=== PATIENT | male | born 1995 | race Two or more races ===

== ENCOUNTER 2017-05-02 01:32 | Emergency (ER) | payer SELFPAY ==
[~2017-05-02] VITALS: Ht 180.3 cm; Wt 82.0 kg
[2017-05-02] MEDS ORDERED: LORazepam 2 MG/ML, 1ML ONE ×2 (01:48→02:52)
[2017-05-02] MEDS ORDERED: LORazepam 2 MG/ML, 1ML IVPush ONE ×2 (02:00→03:00)
[2017-05-02] MEDS ORDERED: SODIUM CHLORIDE FLUSH 10ML SYR IVF ONE (02:00)
[2017-05-02] MEDS ORDERED: PLEASE ENTER ALLERGIES MC SCH (02:00)
[2017-05-02] MEDS ORDERED: SODIUM CHLORIDE 0.9% 1,000ML IVBOLUS ONE ×2 (02:00→03:00)
[2017-05-02] MEDS ORDERED: OMNIPAQUE 350 MG/ML, 100ML BOTTLE ONE (04:02)
[2017-05-02 05:13] VITALS: BP 125/76
== END 2017-05-02 05:12 | disposition home or self-care (01) ==
LOC: ED 02:13
DX: S06.0X0A Concussion without loss of consciousness, initial encounter (principal); S16.1XXA Strain of muscle, fascia and tendon at neck level, initial encounter; S00.11XA Contusion of right eyelid and periocular area, initial encounter; F15.10 Other stimulant abuse, uncomplicated; X58.XXXA Exposure to other specified factors, initial encounter; Y93.89 Activity, other specified; Y99.8 Other external cause status; Y92.89 Other specified places as the place of occurrence of the external cause
CPT/HCPCS: 70450; 70486; 70498; 71045; 72125; 74177; 93005; 96361; 96374; 96376; 99284; J2060; J7030; Q9967

== ENCOUNTER 2017-12-29 04:13 | Observation (INO) | payer OTHER ==
[~2017-12-29] VITALS: Ht 182.9 cm; Wt 70.0 kg
[2017-12-29] MEDS ORDERED: QUET25TA5 PO (04:42)
[2017-12-29] MEDS ORDERED: BUPR-173 PO (04:42)
[2017-12-29 05:22] LABS: BASOPHILS # (AUTO) 0.08 x10^3/uL (0-0.3); BASOPHILS % (AUTO) 1 % (0-1); EOSINOPHILS # (AUTO) 0.13 x10^3/uL (0-0.8); EOSINOPHILS % (AUTO) 2 % (1-7); LYMPHOCYTES # (AUTO) 2.32 x10^3/uL (1-6.1); LYMPHOCYTES % (AUTO) 30 % (22-44); MD NO; MEAN CORPUSCULAR HEMOGLOBIN 29.8 pg (27.5-34.5); MEAN CORPUSCULAR HGB CONC 34.6 g/dL (33.2-36.2); MEAN CORPUSCULAR VOLUME 86.3 fL (81-97); MEAN PLATELET VOLUME 8.1 fL (7.4-10.4); MONOCYTES # (AUTO) 0.87 x10^3/uL (0-1.4); MONOCYTES % (AUTO) 11 % (2-9); NEUTROPHILS # (AUTO) 4.36 x10^3/uL (1.8-8.0); NEUTROPHILS % (AUTO) 56 % (42-75); PLATELET COUNT 246 x10^3/uL (130-400); RED BLOOD COUNT 4.82 x10^6/uL (4.38-5.82); RED CELL DISTRIBUTION WIDTH 13.5 % (9.4-14.8)
[2017-12-29 05:30] LABS: CHLORIDE 109 mmol/L (98-107)
[2017-12-29 05:33] LABS: AMPHETAMINE SCREEN, URINE Positive (Negative); BARBITURATE SCREEN, URINE Negative (Negative); BENZODIAZEPINE SCREEN, URINE Negative (Negative); CANNABINOID SCREEN, URINE Negative (Negative); COCAINE SCREEN, URINE Negative (Negative); METHADONE SCREEN, URINE Negative (Negative); OPIATE SCREEN, URINE Negative (Negative)
[2017-12-29 05:37] LABS: ACETAMINOPHEN < 2 mcg/mL (10-30); ALANINE AMINOTRANSFERASE 15 U/L (12-78); ALBUMIN 3.4 g/dL (3.4-5.0); ALKALINE PHOSPHATASE 48 U/L (45-117); ANION GAP 7 mmol/L (5-15); BILIRUBIN,TOTAL 0.9 mg/dL (0.2-1.0); CALCIUM 8.4 mg/dL (8.5-10.1); CREATININE 0.93 mg/dL (0.7-1.3); SALICYLATE LEVEL < 1.7 mg/dL (2.8-20.0); TOTAL PROTEIN 6.5 g/dL (6.4-8.2)
[2017-12-29] MEDS ORDERED: POLYETHYLENE GLYCOL 17 GM PACKET PO PRN (09:30)
[2017-12-29] MEDS ORDERED: ONDANSETRON ODT 4 MG PO PRN (09:30)
[2017-12-29 10:10] LABS: FREE T4 (FREE THYROXINE) 1.14 ng/dL (0.76-1.46); THYROID STIMULATING HORMONE 1.4 mIU/L (0.358-3.740)
[2017-12-29] MEDS ORDERED: ONDANSETRON ODT 4 MG ONE (19:51)
[2017-12-29] MEDS ORDERED: LORazepam 1MG TABLET ONE (19:52)
[2017-12-29] MEDS: LORazepam 1MG TABLET PO PRN (20:04)
[2017-12-30 06:05] LABS: BASOPHILS # (AUTO) 0.04 x10^3/uL (0-0.3); BASOPHILS % (AUTO) 1 % (0-1); EOSINOPHILS # (AUTO) 0.15 x10^3/uL (0-0.8); EOSINOPHILS % (AUTO) 2 % (1-7); LYMPHOCYTES # (AUTO) 2.59 x10^3/uL (1-6.1); LYMPHOCYTES % (AUTO) 38 % (22-44); MD NO; MEAN CORPUSCULAR HEMOGLOBIN 29.5 pg (27.5-34.5); MEAN CORPUSCULAR HGB CONC 33.6 g/dL (33.2-36.2); MEAN CORPUSCULAR VOLUME 87.7 fL (81-97); MEAN PLATELET VOLUME 8.4 fL (7.4-10.4); MONOCYTES # (AUTO) 0.82 x10^3/uL (0-1.4); MONOCYTES % (AUTO) 12 % (2-9); NEUTROPHILS # (AUTO) 3.16 x10^3/uL (1.8-8.0); NEUTROPHILS % (AUTO) 47 % (42-75); PLATELET COUNT 253 x10^3/uL (130-400); RED BLOOD COUNT 5.38 x10^6/uL (4.38-5.82); RED CELL DISTRIBUTION WIDTH 13.4 % (9.4-14.8)
[2017-12-30 06:11] LABS: ALANINE AMINOTRANSFERASE 18 U/L (12-78); ALBUMIN 3.6 g/dL (3.4-5.0); ANION GAP 6 mmol/L (5-15); CALCIUM 9.2 mg/dL (8.5-10.1); CHLORIDE 106 mmol/L (98-107)
[2017-12-30 06:14] LABS: ALKALINE PHOSPHATASE 50 U/L (45-117); CREATININE 0.85 mg/dL (0.7-1.3)
[2017-12-30] MEDS: SENNA/DOCUSATE TABLET PO SCH (09:00)
[2017-12-30 15:11] VITALS: BP 111/71
[2017-12-30 19:29] VITALS: BP 110/70
[2017-12-30] MEDS: LORazepam 1MG TABLET PO PRN (20:50)
[2017-12-30] MEDS ORDERED: DIPHENHYDRAMINE 50 MG CAPSULE ONE (21:30)
[2017-12-30] MEDS: DIPHENHYDRAMINE 50 MG CAPSULE PO PRN (21:31)
[2017-12-31 08:35] VITALS: BP 102/60
[2017-12-31] MEDS: SENNA/DOCUSATE TABLET PO SCH (09:00)
[2017-12-31] MEDS: LORazepam 1MG TABLET PO PRN ×2 (16:49→20:26)
[2017-12-31 19:30] VITALS: BP 116/73
[2017-12-31] MEDS: DIPHENHYDRAMINE 50 MG CAPSULE PO PRN (20:26)
[2018-01-01 08:15] VITALS: BP 106/59
[2018-01-01] MEDS: SENNA/DOCUSATE TABLET PO SCH (08:24)
[2018-01-01] MEDS: LORazepam 1MG TABLET PO PRN ×2 (08:24→20:25)
[2018-01-01 19:38] VITALS: BP 114/70
[2018-01-01] MEDS: DIPHENHYDRAMINE 50 MG CAPSULE PO PRN (20:25)
[2018-01-02 08:20] VITALS: BP_SYST 118
[2018-01-02] MEDS: SENNA/DOCUSATE TABLET PO SCH (08:42)
[2018-01-02] MEDS ORDERED: FOLIC ACID 1 MG TABLET PO SCH (09:00)
[2018-01-02] MEDS ORDERED: THIAMINE 100MG TABLET PO SCH (09:00)
[2018-01-02] MEDS ORDERED: THIA100T67 PO (11:51)
[2018-01-02] MEDS ORDERED: FOLI-17 PO (11:51)
== END 2018-01-02 13:20 | disposition home or self-care (01) ==
LOC: ED 06:23 → EDIP 07:43 → 2N 12-30 15:00
PROVIDERS: ADMIT Hospitalist; ATTEND Hospitalist
DX: R45.851 Suicidal ideations (principal); F20.9 Schizophrenia, unspecified; F10.10 Alcohol abuse, uncomplicated; F15.10 Other stimulant abuse, uncomplicated
CPT/HCPCS: 36415; 80053; 80307; 80329; 84439; 84443; 85025; 99285; G0378; Q0162; G0480

== ENCOUNTER 2020-01-07 04:54 | Emergency (ER) | payer MEDICAID, OTHER ==
[~2020-01-07] VITALS: Ht 185.4 cm; Wt 75.0 kg
[~2020-01-07 04:54] MED LIST: BUPR-173 PO; FOLI-17 PO; QUET25TA5 PO; THIA100T67 PO
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
[2020-01-07 06:45] LABS: BASOPHILS # (AUTO) 0.05 x10^3/uL (0-0.1); BASOPHILS % (AUTO) 0 % (0-1); EOSINOPHILS # (AUTO) 0.07 x10^3/uL (0-0.4); EOSINOPHILS % (AUTO) 1 % (1-7); LYMPHOCYTES # (AUTO) 2.05 x10^3/uL (1-3.4); LYMPHOCYTES % (AUTO) 19 % (22-44); MD NO; MEAN CORPUSCULAR HEMOGLOBIN 29.4 pg (27.5-34.5); MEAN CORPUSCULAR HGB CONC 32.7 g/dL (33.2-36.2); MEAN PLATELET VOLUME 8.3 fL (7.4-10.4); MONOCYTES # (AUTO) 0.72 x10^3/uL (0.2-0.8); MONOCYTES % (AUTO) 7 % (2-9); NEUTROPHILS # (AUTO) 7.79 x10^3/uL (1.8-6.8); NEUTROPHILS % (AUTO) 73 % (42-75); PLATELET COUNT 276 x10^3/uL (130-400); RED BLOOD COUNT 5.27 x10^6/uL (4.38-5.82); RED CELL DISTRIBUTION WIDTH 12.9 % (9.4-14.8)
[2020-01-07 06:57] LABS: ALANINE AMINOTRANSFERASE 26 U/L (12-78); ALBUMIN 4.6 g/dL (3.4-5.0); ANION GAP 10 mmol/L (5-15); CALCIUM 9.6 mg/dL (8.5-10.1); CHLORIDE 108 mmol/L (98-107); CREATININE 1.12 mg/dL (0.7-1.3)
[2020-01-07 06:58] LABS: SALICYLATE LEVEL < 1.7 mg/dL (2.8-20.0)
[2020-01-07 06:59] LABS: ALKALINE PHOSPHATASE 57 U/L (45-117); BILIRUBIN,TOTAL 1.4 mg/dL (0.2-1.0); TOTAL PROTEIN 8.4 g/dL (6.4-8.2)
[2020-01-07 07:08] LABS: AMPHETAMINE SCREEN, URINE Positive (Negative); BARBITURATE SCREEN, URINE Negative (Negative); BENZODIAZEPINE SCREEN, URINE Negative (Negative); CANNABINOID SCREEN, URINE Negative (Negative); COCAINE SCREEN, URINE Negative (Negative); OPIATE SCREEN, URINE Negative (Negative)
[2020-01-07 07:10] LABS: METHADONE SCREEN, URINE Negative (Negative)
[2020-01-07 07:12] LABS: MICROSCOPIC INDICATED
--- NOTE | 2020-01-07 10:40 | NUR ---
PT RESTING CONT SITTER, AWAITING PSYCHIATRIC EVAL
--- NOTE | 2020-01-07 11:30 | NUR ---
JASON AT BEDSIDE, DOING EVAL
[2020-01-07] MEDS ORDERED: ARIPIPRAZOLE 10 MG TABLET ONE (11:49)
[2020-01-07] MEDS ORDERED: ARIPIPRAZOLE 10 MG TABLET PO ONE (12:00)
[2020-01-07] MEDS ORDERED: ARIPIPRAZOLE 400 MG INJ NC IM ONE (12:00)
[2020-01-07 12:30] VITALS: BP 119/85
== END 2020-01-07 13:39 | disposition home or self-care (01) ==
LOC: ED 05:58
DX: F20.0 Paranoid schizophrenia (principal); R45.851 Suicidal ideations; R00.0 Tachycardia, unspecified; R07.89 Other chest pain
CPT/HCPCS: 36415; 80053; 80307; 81001; 85025; 93005; 96372; 99284

== ENCOUNTER 2020-03-09 05:03 | Emergency (ER) | payer MEDICAID ==
[~2020-03-09] VITALS: Ht 182.9 cm; Wt 72.0 kg
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
[2020-03-09] MEDS ORDERED: BUPR-173 PO (05:35)
[2020-03-09] MEDS ORDERED: TRAZ5POW PO (05:35)
[2020-03-09] MEDS ORDERED: DIPH,PERTUSS(ACELL),TET VAC/PF 0.5 ML IM-VACC ONE ×2 (05:40→06:00)
[2020-03-09] MEDS ORDERED: NEOSPORIN OINT. PKT 1 PACKET ONE (05:41)
[2020-03-09 05:56] VITALS: BP 124/68
[2020-03-09] MEDS ORDERED: BACITRACIN ZINC OINT 500U/GM, 0.9 GM TP ONE (06:00)
== END 2020-03-09 06:35 | disposition home or self-care (01) ==
LOC: MERGE 05:03 → ED 06:04
DX: S61.012A Laceration without foreign body of left thumb without damage to nail, initial encounter (principal); S61.211A Laceration without foreign body of left index finger without damage to nail, initial encounter; S61.213A Laceration without foreign body of left middle finger without damage to nail, initial encounter; S61.215A Laceration without foreign body of left ring finger without damage to nail, initial encounter; S10.83XA Contusion of other specified part of neck, initial encounter; X99.1XXA Assault by knife, initial encounter; Y93.89 Activity, other specified; Y92.410 Unspecified street and highway as the place of occurrence of the external cause; Y99.8 Other external cause status; F17.210 Nicotine dependence, cigarettes, uncomplicated
CPT/HCPCS: 99283

== ENCOUNTER 2020-03-09 07:56 | Emergency (ER) | payer MEDICAID ==
[~2020-03-09] VITALS: Ht 182.9 cm; Wt 70.4 kg
[~2020-03-09 07:56] MED LIST changes: +TRAZ5POW PO
[2020-03-09 08:01] VITALS: BP 122/69
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
--- NOTE | 2020-03-09 08:42 | NUR ---
URINE SAMPLE OBTAINED
[2020-03-09] MEDS ORDERED: OLANZAPINE 5 MG TABLET ONE (08:49)
[2020-03-09] MEDS ORDERED: OLANZAPINE 5 MG TABLET PO SCH (09:00)
[2020-03-09 09:21] LABS: AMPHETAMINE SCREEN, URINE Positive (Negative); BARBITURATE SCREEN, URINE Negative (Negative); BENZODIAZEPINE SCREEN, URINE Negative (Negative); CANNABINOID SCREEN, URINE Negative (Negative); COCAINE SCREEN, URINE Negative (Negative); METHADONE SCREEN, URINE Negative (Negative); OPIATE SCREEN, URINE Negative (Negative)
[2020-03-09 09:22] LABS: BASOPHILS % (AUTO) 1 % (0-1); EOSINOPHILS % (AUTO) 1 % (1-7); LYMPHOCYTES % (AUTO) 21 % (22-44); MEAN CORPUSCULAR HEMOGLOBIN 29.9 pg (27.5-34.5); MEAN CORPUSCULAR HGB CONC 33.6 g/dL (33.2-36.2); MEAN PLATELET VOLUME 8.2 fL (7.4-10.4); MONOCYTES % (AUTO) 11 % (2-9); NEUTROPHILS % (AUTO) 66 % (42-75); PLATELET COUNT 238 x10^3/uL (130-400); RED BLOOD COUNT 4.95 x10^6/uL (4.38-5.82); RED CELL DISTRIBUTION WIDTH 14.2 % (9.4-14.8)
[2020-03-09 09:23] LABS: MD NO
[2020-03-09 09:29] LABS: ALANINE AMINOTRANSFERASE 124 U/L (12-78); ALBUMIN 4.3 g/dL (3.4-5.0); ANION GAP 9 mmol/L (5-15); CALCIUM 8.7 mg/dL (8.5-10.1); CHLORIDE 110 mmol/L (98-107); CREATININE 1.12 mg/dL (0.7-1.3)
[2020-03-09 09:37] LABS: SALICYLATE LEVEL < 1.7 mg/dL (2.8-20.0)
[2020-03-09 09:40] LABS: ALKALINE PHOSPHATASE 57 U/L (45-117); TOTAL PROTEIN 7.6 g/dL (6.4-8.2)
--- NOTE | 2020-03-09 10:07 | NUR ---
PT TO BE ADMITTED TO BEHAVIORAL UNIT. RAPID COVID TO BE COMPLETED.
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
== END 2020-03-09 11:44 | disposition other institution (70) ==
LOC: ED 08:02
DX: F20.0 Paranoid schizophrenia (principal); Z20.828 Contact with and (suspected) exposure to other viral communicable diseases; S61.412A Laceration without foreign body of left hand, initial encounter; S61.411A Laceration without foreign body of right hand, initial encounter; X58.XXXA Exposure to other specified factors, initial encounter; Y93.01 Activity, walking, marching and hiking; Y92.89 Other specified places as the place of occurrence of the external cause; Y99.8 Other external cause status
CPT/HCPCS: 36415; 80053; 80299; 80307; 80320; 80329; 84443; 85025; 87635; 99284; G0480

== ENCOUNTER 2020-03-09 10:03 | Inpatient (IN) | payer MEDICAID ==
[~2020-03-09] VITALS: Ht 182.9 cm; Wt 73.0 kg
[2020-03-09] MEDS ORDERED: ONDANSETRON ODT 4 MG PO PRN (10:30)
[2020-03-09] MEDS ORDERED: POLYETHYLENE GLYCOL 17 GM PACKET PO PRN (10:30)
[2020-03-09] MEDS ORDERED: BISACODYL 10 MG SUPP PR PRN (10:30)
[2020-03-09 11:47] VITALS: BP 119/62
[2020-03-09 12:03] LABS: MICROSCOPIC INDICATED
[2020-03-09 19:11] VITALS: BP 106/64
[2020-03-09] MEDS: TRAZODONE 100MG TABLET PO PRN (21:00)
[2020-03-10 06:14] LABS: CHOL/HDL RATIO 2.8; LDL/HDL RATIO 1.7 (0.5-3.0)
[2020-03-10 07:02] VITALS: BP 117/63
[2020-03-10] MEDS: DOCUSATE 100 MG CAPSULE PO PRN ×2 (08:22→20:22)
[2020-03-10] MEDS: BUPROPION SR 150 MG TABLET PO SCH (08:22)
[2020-03-10] MEDS: NICOTINE 7 MG/24 HR PATCH.TD24 TD SCH (08:24)
[2020-03-10] MEDS ORDERED: NICOTINE 21 MG/24 HR PATCH.TD24 TD SCH (09:00)
[2020-03-10] MEDS: ARIPIPRAZOLE 10 MG TABLET PO SCH (10:13)
[2020-03-10] MEDS ORDERED: BACITRACIN OINT 500U/GM, 15 GM TP SCH (16:00)
[2020-03-10] MEDS: BACITRACIN OINT 500U/GM, 15 GM TP PRN ×2 (17:59→20:23)
[2020-03-10 19:07] VITALS: BP 111/65
[2020-03-10] MEDS: TRAZODONE 100MG TABLET PO PRN (20:22)
[2020-03-10] MEDS: ACETAMINOPHEN 325 MG TABLET PO PRN (20:22)
[2020-03-11 07:17] VITALS: BP 112/69
[2020-03-11] MEDS: ARIPIPRAZOLE 10 MG TABLET PO SCH (08:19)
[2020-03-11] MEDS: DOCUSATE 100 MG CAPSULE PO PRN (08:19)
[2020-03-11] MEDS: BUPROPION SR 150 MG TABLET PO SCH (08:20)
[2020-03-11] MEDS: NICOTINE 7 MG/24 HR PATCH.TD24 TD SCH (08:20)
[2020-03-11 19:38] VITALS: BP 117/57
[2020-03-11] MEDS: TRAZODONE 100MG TABLET PO PRN (20:16)
[2020-03-12 07:00] VITALS: BP 111/62
[2020-03-12] MEDS: ARIPIPRAZOLE 10 MG TABLET PO SCH ×2 (08:13→20:28)
[2020-03-12] MEDS: NICOTINE 7 MG/24 HR PATCH.TD24 TD SCH (08:14)
[2020-03-12] MEDS: BUPROPION SR 150 MG TABLET PO SCH (08:14)
[2020-03-12] MEDS: LORATADINE 10 MG TABLET PO SCH (16:08)
[2020-03-12 19:39] VITALS: BP 124/66
[2020-03-12] MEDS: TRAZODONE 100MG TABLET PO PRN (20:26)
[2020-03-13 07:27] VITALS: BP 116/66
[2020-03-13] MEDS: LORATADINE 10 MG TABLET PO SCH (08:30)
[2020-03-13] MEDS: BUPROPION SR 150 MG TABLET PO SCH (08:30)
[2020-03-13] MEDS: NICOTINE 7 MG/24 HR PATCH.TD24 TD SCH (08:32)
[2020-03-13] MEDS: NICOTINE 14MG/24 HR PATCH.TD24 TD SCH (09:19)
[2020-03-13] MEDS: ACETAMINOPHEN 325 MG TABLET PO PRN (09:19)
[2020-03-13 20:00] VITALS: BP 117/68
[2020-03-13] MEDS: ARIPIPRAZOLE 10 MG TABLET PO SCH (20:19)
[2020-03-13] MEDS: TRAZODONE 100MG TABLET PO PRN (20:24)
[2020-03-14 07:26] VITALS: BP 105/68
[2020-03-14] MEDS: NICOTINE 14MG/24 HR PATCH.TD24 TD SCH (08:32)
[2020-03-14] MEDS: BUPROPION SR 150 MG TABLET PO SCH (08:32)
[2020-03-14] MEDS: LORATADINE 10 MG TABLET PO SCH (08:32)
[2020-03-14] MEDS ORDERED: ARIPIPRAZOLE 400 MG INJ NC IM ONE (09:00)
[2020-03-14] MEDS ORDERED: ARIP400S3 IM (12:39)
[2020-03-14] MEDS ORDERED: NICO-486 TD (12:39)
[2020-03-14] MEDS ORDERED: TRAZ-175 PO (12:39)
[2020-03-14] MEDS ORDERED: BUPR200T2 PO (13:25)
[2020-03-14 20:18] VITALS: BP 117/75
[2020-03-14] MEDS: TRAZODONE 100MG TABLET PO PRN (20:46)
[2020-03-14] MEDS: ARIPIPRAZOLE 10 MG TABLET PO SCH (20:48)
[2020-03-15 07:32] VITALS: BP 111/65
[2020-03-15] MEDS: NICOTINE 14MG/24 HR PATCH.TD24 TD SCH (08:22)
[2020-03-15] MEDS: LORATADINE 10 MG TABLET PO SCH (08:24)
[2020-03-15] MEDS ORDERED: BUPROPION SR 100 MG TABLET PO SCH (09:00)
== END 2020-03-15 10:20 | disposition home or self-care (01) | DRG 885 ==
LOC: 3E 11:39
PROVIDERS: ADMIT Psychiatry & Neurology Psychosomatic Medicine; ATTEND Psychiatry & Neurology Psychosomatic Medicine
DX: F20.0 Paranoid schizophrenia (principal); F11.20 Opioid dependence, uncomplicated; F15.20 Other stimulant dependence, uncomplicated; F32.9 Major depressive disorder, single episode, unspecified; Z79.899 Other long term (current) drug therapy; Z91.19 Patient's noncompliance with other medical treatment and regimen
CPT/HCPCS: 36415; 71045; 80061; 81001; 87086

== ENCOUNTER 2020-04-04 13:45 | Inpatient (IN) | payer MEDICAID ==
[~2020-04-04] VITALS: Ht 182.9 cm; Wt 75.7 kg
[2020-04-04] MEDS ORDERED: ONDANSETRON ODT 4 MG PO PRN (14:00)
[2020-04-04] MEDS ORDERED: DOCUSATE 100 MG CAPSULE PO PRN (14:00)
[2020-04-04] MEDS ORDERED: NICOTINE 14MG/24 HR PATCH.TD24 TD SCH (14:00)
[2020-04-04] MEDS ORDERED: POLYETHYLENE GLYCOL 17 GM PACKET PO PRN (14:00)
[2020-04-04] MEDS ORDERED: TRAZODONE 100MG TABLET PO PRN ×2 (14:30→21:00)
[2020-04-04] MEDS: PLEASE ENTER HEIGHT AND WEIGHT MC SCH ×2 (14:30→15:22)
[2020-04-04 14:51] VITALS: BP 126/83
[2020-04-04] MEDS ORDERED: HYDROXYZINE PAMOATE 50MG CAP ONE (16:57)
[2020-04-04] MEDS: HYDROXYZINE PAMOATE 50MG CAP PO PRN (17:10)
[2020-04-04] MEDS: ACETAMINOPHEN 325 MG TABLET PO PRN (17:53)
[2020-04-04] MEDS ORDERED: ZIPRASIDONE 20 MG INJ IM ONE ×2 (17:55→18:00)
[2020-04-05 07:43] VITALS: BP 103/63
[2020-04-05 08:34] LABS: MICROSCOPIC NOT IND
[2020-04-05] MEDS: NICOTINE 21 MG/24 HR PATCH.TD24 TD SCH (08:38)
[2020-04-05] MEDS: ARIPIPRAZOLE 10 MG TABLET PO SCH (08:38)
[2020-04-05] MEDS: BUPROPION SR 100 MG TABLET PO SCH (08:38)
[2020-04-05] MEDS: HYDROXYZINE PAMOATE 50MG CAP PO PRN (11:56)
[2020-04-05] MEDS ORDERED: ZIPRASIDONE 20 MG INJ IM ONE ×2 (12:27→12:30)
[2020-04-05] MEDS: LORazepam 1MG TABLET PO PRN (16:32)
[2020-04-05] MEDS ORDERED: FLU VACC QS2020-21(6MOS UP)/PF 60MCG/0.5 ML SYR IM ONE (17:00)
[2020-04-05 19:27] VITALS: BP_SYST 0
[2020-04-06 08:10] VITALS: BP 125/72
[2020-04-06] MEDS: LORazepam 1MG TABLET PO PRN ×4 (08:14→23:05)
[2020-04-06] MEDS: NICOTINE 21 MG/24 HR PATCH.TD24 TD SCH (08:24)
[2020-04-06] MEDS: ARIPIPRAZOLE 10 MG TABLET PO SCH (08:26)
[2020-04-06] MEDS: BUPROPION SR 100 MG TABLET PO SCH (08:26)
[2020-04-06 19:09] VITALS: BP 126/67
[2020-04-06] MEDS: MELATONIN 5 MG TABLET PO PRN ×2 (20:14→23:00)
[2020-04-06] MEDS: HYDROXYZINE PAMOATE 50MG CAP PO PRN ×2 (20:14→23:00)
[2020-04-06] MEDS: ACETAMINOPHEN 325 MG TABLET PO PRN (20:14)
[2020-04-07 07:36] VITALS: BP 106/66
[2020-04-07] MEDS: BUPROPION SR 100 MG TABLET PO SCH (07:48)
[2020-04-07] MEDS: NICOTINE 21 MG/24 HR PATCH.TD24 TD SCH (07:48)
[2020-04-07] MEDS: ARIPIPRAZOLE 10 MG TABLET PO SCH (07:49)
[2020-04-07] MEDS: LORazepam 1MG TABLET PO PRN ×3 (07:50→20:36)
[2020-04-07] MEDS: ACETAMINOPHEN 325 MG TABLET PO PRN (07:59)
[2020-04-07] MEDS: HYDROXYZINE PAMOATE 50MG CAP PO PRN (18:03)
[2020-04-07 19:30] VITALS: BP 118/70
[2020-04-07] MEDS: MELATONIN 5 MG TABLET PO PRN (20:36)
[2020-04-08 07:15] VITALS: BP 118/67
[2020-04-08] MEDS ORDERED: PALIPERIDONE PALMITATE 156 MG/ML IM ONE (09:00)
[2020-04-08] MEDS: ARIPIPRAZOLE 10 MG TABLET PO SCH (09:14)
[2020-04-08] MEDS: BUPROPION SR 100 MG TABLET PO SCH (09:14)
[2020-04-08] MEDS: LORazepam 1MG TABLET PO PRN (09:15)
[2020-04-08] MEDS: NICOTINE 21 MG/24 HR PATCH.TD24 TD SCH (09:15)
[2020-04-08] MEDS ORDERED: NICO-587 TD (12:43)
[2020-04-08] MEDS ORDERED: ARIP10TA33 PO (12:43)
[2020-04-08] MEDS ORDERED: BUPR-173 PO (12:43)
[2020-04-08] MEDS ORDERED: MELA5TAB14 PO (12:43)
[2020-04-08] MEDS ORDERED: HYDR50CA2 PO (12:43)
== END 2020-04-08 13:12 | disposition home or self-care (01) | DRG 885 ==
LOC: 3E 13:46
PROVIDERS: ADMIT Psychiatry & Neurology Psychosomatic Medicine; ATTEND Psychiatry & Neurology Psychosomatic Medicine
DX: F20.0 Paranoid schizophrenia (principal); F15.20 Other stimulant dependence, uncomplicated; F17.200 Nicotine dependence, unspecified, uncomplicated; F32.9 Major depressive disorder, single episode, unspecified; Z79.899 Other long term (current) drug therapy
CPT/HCPCS: 81003; 90686; 93005; J3486; J2426

== ENCOUNTER → 2020-04-04 | Emergency (ER) | payer MEDICAID ==
[~2020-04-04] VITALS: Ht 182.9 cm; Wt 73.0 kg
[~2020-04-04] MED LIST changes: +ARIP400S3 IM; +BUPR200T2 PO; +NICO-486 TD; +TRAZ-175 PO
--- NOTE | 2020-04-04 10:15 | NUR ---
PT CHANGED INTO GOWN. BELONGINGS BAGGED UP. PT CAME IN WITH LARGE BLACK PLASTIC BAG FILLED WITH BELONGINGS AND TWO ADDITIONAL HOSPITAL BELONGING BAGS USED FOR A TOTAL OF 3 BAGS, ALL LABELLED, TIED TOGETHER AND PLACED IN LOCKER. ONLY TWO BAGS FIT INTO DESIGNATED PLACE FOR ROOM 40'S BOX, THE THIRD WHILE STILL TIED TO OTHERS IS IN SPACE NEXT TO 40'S CUBBY. PT AWARE OF NEED FOR UA. PO FLUIDS PROVIDED. ER PROVIDER HAS BEEN IN TO ASSESS PT. PT COOPERATIVE AT THIS TIME.
--- NOTE | 2020-04-04 10:17 | NUR ---
REPORT TO GALO CASANOVA.
[2020-04-04 10:42] LABS: ALANINE AMINOTRANSFERASE 46 U/L (12-78); ALBUMIN 3.9 g/dL (3.4-5.0); ANION GAP 3 mmol/L (5-15); CALCIUM 8.7 mg/dL (8.5-10.1); CHLORIDE 108 mmol/L (98-107); CREATININE 1.14 mg/dL (0.7-1.3)
[2020-04-04 10:44] LABS: ALKALINE PHOSPHATASE 57 U/L (45-117); BILIRUBIN,TOTAL 1.4 mg/dL (0.2-1.0); SALICYLATE LEVEL < 1.7 mg/dL (2.8-20.0); TOTAL PROTEIN 7.3 g/dL (6.4-8.2)
[2020-04-04 10:55] LABS: BASOPHILS % (AUTO) 1 % (0-1); EOSINOPHILS % (AUTO) 3 % (1-7); LYMPHOCYTES % (AUTO) 36 % (22-44); MEAN CORPUSCULAR HEMOGLOBIN 30.1 pg (27.5-34.5); MEAN CORPUSCULAR HGB CONC 34.2 g/dL (33.2-36.2); MEAN PLATELET VOLUME 8.2 fL (7.4-10.4); MONOCYTES % (AUTO) 13 % (2-9); NEUTROPHILS % (AUTO) 47 % (42-75); PLATELET COUNT 240 x10^3/uL (130-400); RED BLOOD COUNT 5.11 x10^6/uL (4.38-5.82); RED CELL DISTRIBUTION WIDTH 14.1 % (9.4-14.8)
[2020-04-04 11:10] LABS: MD NO
--- NOTE | 2020-04-04 11:25 | NUR ---
OPERATION SHIFT SUPERVISOR AT BEDSIDE
--- NOTE | 2020-04-04 11:26 | NUR ---
PT GIVEN SANDWICH, DRINK, AND CRACKERS.
[2020-04-04 11:29] VITALS: BP 108/70
[2020-04-04 11:46] LABS: AMPHETAMINE SCREEN, URINE Positive (Negative); BARBITURATE SCREEN, URINE Negative (Negative); BENZODIAZEPINE SCREEN, URINE Negative (Negative); CANNABINOID SCREEN, URINE Negative (Negative); COCAINE SCREEN, URINE Negative (Negative); METHADONE SCREEN, URINE Negative (Negative); OPIATE SCREEN, URINE Negative (Negative)
--- NOTE | 2020-04-04 12:21 | NUR ---
PT R[place]IGH TAKEN BY SECURITY AND LOCKED UP
--- NOTE | 2020-04-04 12:28 | NUR ---
LUNCH TRAY DELIVERED TO PT
--- NOTE | 2020-04-04 12:29 | NUR ---
PCR COVID TEST TAKEN TO LAB
--- NOTE | 2020-04-04 13:09 | NUR ---
pt resting in bed watching tv. sitter at door.
== END ==
LOC: ED 14:03
DX: R45.851 Suicidal ideations (principal); F17.290 Nicotine dependence, other tobacco product, uncomplicated; F15.19 Other stimulant abuse with unspecified stimulant-induced disorder
CPT/HCPCS: 36415; 80053; 80299; 80307; 80320; 80329; 85025; 87426; 99284; 99406; G0480